=== PATIENT | female | born 1950 | race Caucasian/White ===

== ENCOUNTER → 2017-10-15 | Outpatient (CLI) | payer BC ==
[~2017-10-15] MED LIST: IOPAMIDOL (ISOVUE-300) 100 ML BTL ONE
== END ==
LOC: FIMAGING 08:04
PROVIDERS: ATTEND Internal Medicine
DX: Z12.31 Encounter for screening mammogram for malignant neoplasm of breast (principal); K44.9 Diaphragmatic hernia without obstruction or gangrene; E03.9 Hypothyroidism, unspecified; I70.0 Atherosclerosis of aorta; D18.09 Hemangioma of other sites; M48.07 Spinal stenosis, lumbosacral region; M51.37 Other intervertebral disc degeneration, lumbosacral region
CPT/HCPCS: Q9967

== ENCOUNTER 2017-11-01 08:35 | Observation (INO) | payer BC ==
[2017-11-01] MEDS ORDERED: ceFAZolin 2 GM/DEXTROSE 100 ML IV ONE (08:44)
[2017-11-01] MEDS ORDERED: LR 1,000 ML IV ONE (08:46)
--- NOTE | 2017-11-01 09:35 | PDHPUP ---
History & Physical Update H&P update statement: This history and physical update is based on an assessment of the patient which was completed after admission or registration (within 24 hours), but prior to the surgery/procedure. H&P update: H&P reviewed & patient examined, no change in patient's condition since H&P completed
[2017-11-01] MEDS ORDERED: MIDAZOLAM 2 MG/2 ML VIAL IVP ONE (09:43)
[2017-11-01] MEDS ORDERED: MIDAZOLAM 2 MG/2 ML VIAL ONE (09:52)
[2017-11-01] MEDS ORDERED: fentaNYL 100 MCG/2 ML INJ ONE ×4 (10:09→13:31)
[2017-11-01] MEDS ORDERED: REMIFENTANIL HCL 1 MG VIAL ONE (10:09)
[2017-11-01] MEDS ORDERED: PROPOFOL/EMULSION 500 MG/50 ML BOTTLE IV ONE (10:09)
[2017-11-01] MEDS ORDERED: LIDOCAINE 2% 100 MG/5 ML SYR ONE (10:11)
[2017-11-01] MEDS ORDERED: ONDANSETRON 4 MG/2 ML VIAL ONE (10:11)
[2017-11-01] MEDS ORDERED: DEXAMETHASONE 4 MG/ML VIAL ONE (10:11)
[2017-11-01] MEDS ORDERED: ROCURONIUM 50 MG/5 ML VIAL ONE (10:11)
[2017-11-01] MEDS ORDERED: LIDOCAINE HCL 160 MG/4 ML LTA KIT TP ONE (10:12)
[2017-11-01] MEDS ORDERED: BUPIVACAINE 0.5% 30 ML SDV ONE (10:23)
[2017-11-01] MEDS ORDERED: ePHEDrine SULFATE 25 MG/5 ML SYR ONE (10:28)
--- NOTE | 2017-11-01 10:51 | PDANEPAE ---
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 reflux - Other Health History Other Health History: wears contacts - Chronic Pain History Chronic Pain: No - Surgical History Prior Surgeries: bunionectomy- bilaterally ANE Review of Systems Review of Systems: - Exercise capacity METS (RN): 4 METS ANE Patient History - Allergies Allergies/Adverse Reactions: No Known Allergies Allergy (Verified 10/23/17 15:38) - Home Medications Home medications: home medication list seen and reviewed Home Medications: ARMOUR THYROID 10/23/17 [Last Taken 11/01/17 06:45] Ambien 5MG (*) HS 10/23/17 [Last Taken 10/31/17 23:00] Biest Hormone Replacement 10/23/17 [Last Taken 10/31/17 23:00] Dhea 10/23/17 [Last Taken 10/31/17 06:00] Herbals/Supplements -Info Only 10/23/17 [Last Taken 10/31/17 06:00] Probiotic 10/23/17 [Last Taken 10/31/17 06:00] Progesterone HS 10/23/17 [Last Taken 10/31/17 23:00] - NPO status NPO Since - Liquids (Date): 10/31/17 NPO Since - Liquids (Time): 23:00 NPO Since - Solids (Date): 09/20/18 NPO Since - Solids (Time): 23:00 - Anes Hx Anes Hx: no prior problems - Smoking Hx Smoking Status: Former smoker - Alcohol Use Alcohol Use: None - Family Anes Hx Family Anes Hx: none Family Hx Anesthesia Complications: none ANE Labs/Vital Signs - Labs - CBC WBC: labs okay - Vital Signs Blood Pressure: 137/57 Heart Rate: 62 Respiratory Rate: 18 O2 Sat (%): 95 Height: 161.29 cm Weight: 72.212 kg ANE Physical Exam - Airway Neck exam: FROM Mallampati Score: Class 2 Mouth exam: normal dental/mouth exam Mouth image: 1 - upper veneers - Pulmonary Pulmonary: no respiratory distress - Cardiovascular Cardiovascular: regular rate and rhythym - ASA Status ASA Status: II ANE Anesthesia Plan Anesthesia Plan: general endotracheal anesthesia Urgent/Emergent Case: Izaiah shafer completed preop but documented later for safe timely pt care
[2017-11-01] MEDS ORDERED: SUGAMMADEX SODIUM 200 MG/2 ML VIAL IVP ONE (12:15)
[2017-11-01] MEDS ORDERED: ONDANSETRON 4 MG/2 ML VIAL IVP PRN ×2 (12:18→12:30)
[2017-11-01] MEDS ORDERED: HYDROCODONE/APAP 5/325 TAB PO PRN ×2 (12:18→12:30)
[2017-11-01] MEDS ORDERED: ONDANSETRON DISINTEGRATING 4 MG TAB PO PRN (12:18)
[2017-11-01] MEDS ORDERED: PROMETHAZINE HCL 25 MG/ML INJ IVP PRN ×2 (12:19→12:30)
--- NOTE | 2017-11-01 12:21 | POSTOPPROG ---
Post Op Note Date of Operation: 11/01/17 Surgeon: Mago Ybarra Cigarette Machines Mechanic: abby Anesthesiologist: nando Anesthesia: GET(General Endotracheal) Pre-op Diagnosis: hiatal hernia Post-op Diagnosis: same Indication: 67 yo with hiatal hernia Procedure: davinci hiatal hernia repair and fundiplication Findings: adhesions and hiatal hernia Inf/Abcess present in the surg proc area at time of surgery?: No EBL: Minimal Specimen(s): none
[2017-11-01] MEDS ORDERED: LABETALOL HCL 5 MG/ML 20 ML MDV IVP PRN (12:30)
[2017-11-01] MEDS ORDERED: NALOXONE HCL 0.4 MG/ML INJ IVP PRN (12:30)
[2017-11-01] MEDS ORDERED: MEPERIDINE 25 MG/0.5 ML AMP IVP PRN (12:30)
[2017-11-01] MEDS ORDERED: PHENYLEPHRINE HCL 100 MCG/ML SYR IVP PRN (12:30)
[2017-11-01] MEDS ORDERED: METOCLOPRAMIDE 10 MG/2 ML VIAL IVP PRN (12:30)
[2017-11-01] MEDS ORDERED: ACETAMINOPHEN 500 MG TAB PO PRN (12:30)
[2017-11-01] MEDS ORDERED: DEXAMETHASONE 4 MG/ML VIAL IVP PRN (12:30)
[2017-11-01] MEDS ORDERED: oxyCODONE IR 5 MG TAB PO PRN (12:30)
[2017-11-01] MEDS ORDERED: LR 500 ML IV PRN (12:30)
[2017-11-01] MEDS ORDERED: ALBUTEROL 3 ML DEYVIAL IH PRN (12:30)
[2017-11-01] MEDS: fentaNYL 100 MCG/2 ML INJ IVP PRN ×6 (12:48→13:40)
--- NOTE | 2017-11-01 13:02 | POSTANESTH ---
Post Anesthetic Evaluation Cardiovascular Status: Normal, Stable Respiratory Status: Normal, Stable Level of Consciousness/Mental Status: Can Participate in Eval, Mildly Sleepy, Arousable Pain Control: Inadeq, Add Tx Required Nausea/Vomiting Control: Adequate, Prn Tx Ordered Complications Possibly Related to Anesthesia: None Noted
[2017-11-01] MEDS ORDERED: KETOROLAC 30 MG/1 ML SDV ONE (13:31)
--- NOTE | 2017-11-01 13:38 | GOP ---
DATE OF OPERATION: 11/01/2017 SURGEON: Mago Ybarra MD FELT HAT INSPECTOR AND PACKER: Paul Mercado MD. ANESTHESIA: General. ANESTHESIOLOGIST: Kaushal Headley MD. PREOPERATIVE DIAGNOSIS: Hiatal hernia. POSTOPERATIVE DIAGNOSIS: Hiatal hernia. PROCEDURE PERFORMED: DaVinci lysis of adhesions and hiatal hernia repair with partial wrap. FINDINGS: She did have some adhesions from her falciform to her stomach and additional adhesions to her liver. SPECIMENS: None. ESTIMATED BLOOD LOSS: 10 cc. INDICATIONS: Aishwarya Hall is a 67-year-old woman who has experienced discomfort for many years. It is worse when riding her bike or leaning over and tying her shoes. It is becoming increasingly inte rfering with activities of daily living. She had workup performed, which showed a large hiatal herni a. DESCRIPTION OF PROCEDURE: Patient was brought into the operating room, placed supine on the table, a nd general anesthesia was administered. Her abdomen was prepped and draped in the usual sterile fas ion. I infiltrated all sites with 0.5% Marcaine prior to making incision. I made an incision approx imately 3 cm above her umbilicus. I elevated the skin and inserted the Veress needle. It passed the hanging drop test. Her abdomen insufflated easily to a pressure of 15 mmHg. I placed an 8 mm troca r with a camera at this site. There were no injuries from Veress needle placement. Under direct vis ion, I placed a trocar in the right midclavicular line and along the right costal margin, on the left midclavicular line and on the left costal margin. The robot was brought in. The table was position ed reverse Trendelenburg, tilting toward the right side. The robot was docked. Instruments were int roduced under direct vision. I noticed a large adhesion in the middle, which prevented me from placi ng the liver to retract it first. I moved to the console, and I lysed the adhesions with the Harmoni c. I then could advance the liver retractor and expose the hiatus. The gastrohepatic ligament was o pened beginning at the pars flaccida. The peritoneum was incised anteriorly over the hiatus to the l eft sudhir. The right sudhir was identified and cleared of investing tissue, and the plane between the c sergio and the esophagus was developed. The phrenoesophageal ligament was divided. The vagus nerves we re identified and protected. The esophagus was gently elevated. I continued to clear the investing tissue so that the esophagus lay nicely within the abdominal cavity. I divided the short gastric art eries. After my dissection was completed, I then could move the esophagus anteriorly and placed 3 si mple interrupted sutures of 0 silk to approximate the hiatus behind the esophagus, leaving approximat jo 1 cm space posteriorly to allow the esophagus to rest in its normal position. At least 2 cm of i ntraabdominal esophagus was observed. Next, a grasper was passed behind the esophagus and the fundus grasped and pulled over to the right side in the esophagus. It passed easily in proper orientation, ensured by performing the shoeshine maneuver. The wrap was approximated to the esophagus with 0 criselda k. I then wrapped on the left side of the esophagus making approximately a 270 wrap. I placed 2 gas tropexy sutures. I examined her abdomen. There were no injuries noted. The instruments were remove d under direct visualization. I then took the camera one last time, undocked, and explored her abdom en. Skin closed with 4-0 Monocryl Dermabond applied. She was awakened in the operating room, extuba ángel, transferred to PACU in stable condition. /[id number]/MODL
[2017-11-01] MEDS ORDERED: KETOROLAC 30 MG/1 ML SDV IVP ONE (14:00)
[2017-11-01] MEDS ORDERED: ZOLPIDEM TARTRATE 5 MG TAB PO PRN (21:25)
[2017-11-02] MEDS: ACETAMINOPHEN 325 MG TAB PO PRN ×3 (04:06→12:09)
[2017-11-02 11:46] VITALS: BP 136/64
--- NOTE | 2017-11-02 13:11 | SOAPPROG ---
SOAP Progress Note Assessment/Plan: Assessment: doing well/ wounds ok/ aafebrile/ tolerating clears chest clear/ abd soft, nontender, some bs Plan:home 11/02/17 13:09 Objective: Vital Signs Temp Pulse Resp BP Pulse Ox 36.8 C 61 12 136/64 H 93 11/02/17 11:45 11/02/17 11:45 11/02/17 11:45 11/02/17 11:45 11/02/17 11:45 11/01/17 11/02/17 11/03/17 05:59 05:59 05:59 Intake Total 2225 Output Total 350 Balance 1875 ICD10 Worksheet Patient Problems: Problems Problem Status Onset Hiatal hernia Acute - ICD10 Problem Qualifiers (1) Hiatal hernia
--- NOTE | 2017-11-02 14:14 | ASMTLACE ---
BEATAE Length of stay for Answers: 1 day current admission Acuity / Level of Answers: No Care: Did the patient have an inpatient admission? Comorbidities - select Answers: Other Notes: Hypothyroid all that apply # of Emergency department Answers: 0 visits in the last 6 months Score: 2 Date Signed: 11/02/2017 02:13 PM Electronically Signed By:Tiffany Nguyen RN
--- NOTE | 2017-11-02 14:15 | ASMTCMCOM ---
CM Note CM Note Notes: Pt admitted for a scheduled surgery, doing well. She will dc home w/support of her who is a physician. CM available for any needs. DC Plan: Independent Date Signed: 11/02/2017 02:14 PM Electronically Signed By:Tiffany Nguyen RN
--- NOTE | 2017-11-08 14:44 | GDS ---
ADMITTING DIAGNOSIS: Hiatal hernia. REASON FOR ADMISSION: The patient is a 67-year-old woman with imaging evidence of hiatal hernia. Bryan jacques was admitted at this time for surgical intervention, pain control, and observation. HOSPITAL COURSE: She was taken to the operating room by Dr. Mago Ybarra on 11/01/2017 for a robotic hiatal hernia repair with fundoplication. On postoperative day #1, she was tolerating a clear liquid diet. Her pain was well controlled. She was ambulating independently and she was ready for dischar . DISCHARGE CONDITION: She is being discharged home in stable condition. Pain controlled with oral pa in medication. Tolerating a clear liquid diet and ambulating independently. DISCHARGE MEDICATIONS: Sent home with prescription for [facility]. Instructed to resume home medicines. Please see EMR for further details. DISCHARGE INSTRUCTIONS AND FOLLOWUP: She will avoid heavy lifting, pushing, or pulling greater than 15 pounds for 2 weeks. She will follow up with Dr. Ybarra in 2 weeks for re-evaluation. She will fol low a soft diet and call with any worsening symptoms, questions or concerns. /[id number]/MODL
== END 2017-11-02 14:13 | disposition home or self-care (01) ==
LOC: FSGY 08:35 → F3N 12:18 → F3E 14:09
PROVIDERS: ADMIT Surgery; ATTEND Surgery
PROC: 0DV44CZ Restriction of Esophagogastric Junction with Extraluminal Device, Percutaneous Endoscopic Approach (ICD-10-PCS; principal; 2017-11-01 10:30)
PROC: 0BQT4ZZ Repair Diaphragm, Percutaneous Endoscopic Approach (ICD-10-PCS; principal; 2017-11-01 10:30)
DX: K44.9 Diaphragmatic hernia without obstruction or gangrene (principal); K56.51 Intestinal adhesions [bands], with partial obstruction; E03.9 Hypothyroidism, unspecified
CPT/HCPCS: 43281; G0378; J0690; J1100; J1885; J2001; J2250; J2270; J2405; J2704; J3010

== ENCOUNTER → 2017-12-27 | Outpatient (CLI) | payer BC | LOC: FIMAGING 08:46 | PROVIDERS: ATTEND Surgery | DX: K40.90 Unilateral inguinal hernia, without obstruction or gangrene, not specified as recurrent (principal) ==

== ENCOUNTER 2018-07-04 13:03 | Emergency (ER) | payer BC ==
[2018-07-04] MEDS ORDERED: NS 1,000 ML IV ONE ×2 (13:30→19:40)
[2018-07-04] MEDS ORDERED: PROPOFOL 200 MG/20 ML VIAL IVP ONE ×4 (13:36→13:47)
[2018-07-04] MEDS ORDERED: fentaNYL 100 MCG/2 ML INJ ONE (14:03)
[2018-07-04] MEDS ORDERED: fentaNYL 100 MCG/2 ML INJ IVP ONE (14:03)
--- NOTE | 2018-07-04 14:30 | EDPHY ---
H & P Stated Complaint: CHIEF COMPLAINT:HISTORY OF PRESENT ILLNESS:REVIEW OF SYSTEMS: A te Time Seen by Provider: 07/04/18 13:05 HPI/ROS: CHIEF COMPLAINT: Left shoulder dislocation HISTORY OF PRESENT ILLNESS: This is a 67-year-old female who was retrieving a box from a storage space in her attic when she slipped and fell through some sheet rock, catching herself on a rafter with the rafter in her axilla. This caused a left shoulder dislocation. She did not sustain any other injuries. She did not strike her head. She denies any neck or back pain. There was no direct chest trauma and she is not having any difficulty breathing. She does not have abdominal pain, nausea, or vomiting. REVIEW OF SYSTEMS: A ten system review of systems was performed and is negative with the exception of the items mentioned in the HPI. Past medical history: 1. Hypothyroid 2. Inguinal hernia 3. Hiatal hernia 4. sleep apnea, CPAP at night Past surgical history: Recent repair of both her hiatal hernia and her inguinal hernia. Social history: She lives with her . 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 She does not use tobacco products. Social use of alcohol. General Appearance: Alert. Vital signs reviewed. 189/88. Neck: Nontender to palpation over the cervical spine in the midline. Respiratory: Lungs are clear to auscultation; no wheezes, rales, or rhonchi. Cardiovascular: Regular rate and rhythm; no murmur, rub, or gallop. Gastrointestinal: Abdomen is soft and nontender. Skin: Warm and dry, no rashes on exposed skin, normal color. Back: Nontender to palpation over the thoracolumbar spine. Extremities: Obvious left shoulder dislocation with visible deformity, with squaring of the glenohumeral joint. Her left arm is held extended at her side. Neurological: Alert and oriented. Moving all both legs and her right arm spontaneously. Sensation intact to light touch over both upper extremities, including over left deltoid (indicating intact axillary nerve). 5/5 strength of the left wood cutter. Full flexion extension of the digits of her left hand. Pulses: 2+ radial pulses bilaterally. Psych: Normal affect, no agitation. - Personal History Current Tetanus Diphtheria and Acellular Pertussis (TDAP): Unsure - Medical/Surgical History Hx Asthma: No Hx Chronic Respiratory Disease: No Hx Diabetes: No Hx Cardiac Disease: No Hx Renal Disease: No Hx Cirrhosis: No Hx Alcoholism: No Hx HIV/AIDS: No Hx Splenectomy or Spleen Trauma: No Other PMH: CPAP at night,hypothyroid,hiatal hernia repair,inguinal hernia repair - Social History Smoking Status: Former smoker Constitutional: Initial Vital Signs Heart Rate 65 07/04/18 13:25 Respiratory Rate 16 07/04/18 13:25 Blood Pressure 189/88 H 07/04/18 13:25 O2 Sat (%) 100 07/04/18 13:25 O2 Delivery Mode [Post Room Air Procedure 4th] O2 Delivery Mode [Post Nasal Cannula Procedure 3rd] O2 Delivery Mode [Post Oxymask Procedure 2nd] O2 Delivery Mode [Post Oxymask Procedure 1st] O2 Delivery Mode [Procedural Oxymask 4th] O2 Delivery Mode [Procedural Oxymask 3rd] O2 Delivery Mode [Procedural Oxymask 2nd] O2 Delivery Mode [Procedural Oxymask 1st] O2 Delivery Mode Room Air O2 (L/minute) [Post Procedure 2 3rd] O2 (L/minute) [Post Procedure 15 2nd] O2 (L/minute) [Post Procedure 15 1st] O2 (L/minute) [Procedural 4th] 15 O2 (L/minute) [Procedural 3rd] 15 O2 (L/minute) [Procedural 2nd] 15 O2 (L/minute) [Procedural 1st] 15 O2 (L/minute) 15 Allergies/Adverse Reactions: No Known Allergies Allergy (Verified 10/23/17 15:38) Home Medications: Medication Instructions Recorded Herbals/Supplements -Info Only 1 ea PO DAILY 10/23/17 Progesterone, Micronized 100 mg PO HS 10/23/17 [Progesterone] Thyroid [[place] Thyroid 60 MG (*)] 120 mg PO DAILY 10/23/17 Zolpidem Tartrate [Ambien 5MG (*)] 2.5 - 5 mg PO HS PRN 10/23/17 Biest 50/50 1 ea VG HS 11/01/17 Cholecalciferol Vit D3 [Vitamin D3 5,000 units PO DAILY 11/01/17 (*)] Melatonin [Melatonin 3 MG (*)] 3 mg PO HS 11/01/17 Omeprazole 20 mg PO DAILY PRN 11/01/17 Pyridoxine HCl [Vitamin B-6 100 mg 100 mg PO DAILY 11/01/17 (*)] Hydrocodone/APAP 5/325 [Ponca 1 - 2 tab PO Q4 PRN #15 tab 07/04/18 5/325 (RX)] LORazepam [Ativan] 1 mg PO Q8 PRN #6 tablet 07/04/18 Medical Decision Making Procedures: Procedure: Procedural sedation. Indication: Shoulder dislocation. A pre-sedation evaluation was completed on this patient prior to the procedure. The patient is an appropriate candidate for procedural sedation with ASA class 1. Mallimpati score is II. A 3-3-2 airway assessment was performed. The risks and benefits of the sedation were discussed, with risks including but not limited to dysrhythmia, need for airway intervention or general anesthesia, disability and . Verbal consent obtained. A timeout was observed and patient's identity was confirmed. The patient was sedated with propofol 100 mg IV. The patient was monitored with continuous pulse oximetry, capnography, and EKG monitoring. There were no complications and no significant hypoxemia. I remained at the bedside for the sedation. The total time I spent in the procedural sedation was 10 min. ED joint relocation: Left shoulder dislocation. Verbal consent for procedural sedation and shoulder relocation was obtained from the patient after explaining the risks and the benefits. Procedural sedation as above. Left shoulder was anteriorly dislocated. Left shoulder was relocated by me and an emergency department cryptological technician using a traction counter traction technique. Postreduction x-ray showed anatomic positioning with Hill-Sachs deformity. Patient's left arm was placed in a sling. ED Course/Re-evaluation: Healthy 67-year-old female with a traumatic left shoulder anterior dislocation. She underwent shoulder relocation using procedural sedation. Please see procedure notes. No other injuries were discovered (no head injury, vertebral injury, neurovascular injury, laceration, contusion, or abrasion). She has been given a referral to Orthopedics. Both she and her are aware of the danger signs that would prompt re-evaluation. In addition to a shoulder dislocation she has a Hill-Sachs deformity. - Data Points Medications Given: Discontinued Medications Fentanyl (Sublimaze) 50 mcg IVP EDNOW ONE Stop: 07/04/18 14:04 Last Admin: 07/04/18 14:05 Dose: 50 mcg Sodium Chloride (Ns) 1,000 mls @ 0 mls/hr IV ONCE ONE PRN Reason: Wide Open Stop: 07/04/18 13:31 Last Admin: 07/04/18 13:30 Dose: 1,000 mls Propofol (Diprivan) 70 mg IVP EDNOW ONE Stop: 07/04/18 13:37 Last Admin: 07/04/18 13:43 Dose: 70 mg Propofol (Diprivan) 10 mg IVP EDNOW ONE Stop: 07/04/18 13:46 Last Admin: 07/04/18 14:00 Dose: 10 mg Propofol (Diprivan) 10 mg IVP EDNOW ONE Stop: 07/04/18 13:47 Last Admin: 07/04/18 13:46 Dose: 10 mg Propofol (Diprivan) 10 mg IVP EDNOW ONE Stop: 07/04/18 13:48 Last Admin: 07/04/18 13:47 Dose: 10 mg Departure - Departure Disposition: Home, Routine, Self-Care Clinical Impression: Hill Sachs deformity, left Dislocation of left shoulder joint Qualifiers: Encounter type: initial encounter Qualified Code(s): S43.005A - Unspecified dislocation of left shoulder joint, initial encounter Condition: Good Instructions: Shoulder Dislocation (ED) Referrals: Ifeoma Garcia MD [Primary Care Provider] - As per Instructions Kirill Lutz MD [Medical Doctor] - As per Instructions Prescriptions: Hydrocodone/APAP 5/325 [Ponca 5/325 (RX)] 1 - 2 tab PO Q4 PRN #15 tab PRN Reason: pain LORazepam [Ativan] 1 mg PO Q8 PRN #6 tablet PRN Reason: Anxiety
[2018-07-04 18:32] VITALS: BP 149/69
== END 2018-07-04 15:04 | disposition home or self-care (01) ==
LOC: CED 13:03
PROC: 0RSKXZZ Reposition Left Shoulder Joint, External Approach (ICD-10-PCS; principal; 2018-07-04)
DX: S43.005A Unspecified dislocation of left shoulder joint, initial encounter (principal); M21.922 Unspecified acquired deformity of left upper arm; W01.0XXA Fall on same level from slipping, tripping and stumbling without subsequent striking against object, initial encounter; Y92.008 Other place in unspecified non-institutional (private) residence as the place of occurrence of the external cause
CPT/HCPCS: 73030-PO; 96361-ER; 96374-ER; 99156-ER; 99284-ER; A4565-ER; J2704; J3010

== ENCOUNTER → 2018-07-09 | Outpatient (CLI) | payer BC | LOC: FIMAGING 11:07 ==

== ENCOUNTER → 2018-07-15 | Outpatient (CLI) | payer BC | LOC: FIMAGING 12:07 ==